=== PATIENT | female | born 1965 | race American Indian/Alaskan Native ===

== ENCOUNTER 2016-10-08 13:00 | Emergency (ER) | payer OTHER ==
[2016-10-08] MEDS ORDERED: TETRACAINE 0.5% OU STA (17:27)
[2016-10-08] MEDS ORDERED: FUL-GLO OP ONE (17:27)
[2016-10-08] MEDS ORDERED: BOOSTRIX IM ONE (17:31)
[2016-10-08] MEDS ORDERED: MOTRIN PO ONE (17:43)
--- NOTE | 2016-10-08 17:49 | Emergency Department Report ---
ED Eye Problem HPI - General Chief complaint: Eye Problems Stated complaint: LEFT EYE INJURY Time Seen by Provider: 10/08/16 17:26 Source: patient Mode of arrival: Ambulatory Limitations: No Limitations - History of Present Illness Initial comments: PT states yesterday she was sewing hair with a hand sewing machine and the needle came back and poked her in the L eye. PT states after the injury, she had mild L eye irritation. PT states last night, her eye began to drain. PT states this morning she had pain that was 8/10 and she tried to see her eye doctor but he was not in. PT states that her TD vaccine is not utd. chief complaint: eye injury -: Sudden, days(s) Onset Description: sudden Location: left eye Place: home If Injury: direct trauma Eye Symptoms: burning, redness, pain, discharge, photophobia Severity: severe Severity scale (0 -10): 8 If Pain, Quality: sharp, burning Associated Symptoms: none Treatments Prior to Arrival: none - Related Data Previous Rx's Medication Instructions Recorded Last Taken Type Acetaminophen/Codeine [Tylenol #3] 1 tab PO Q6H PRN #12 tab 10/08/16 Unknown Rx Erythromycin [Erythromycin Ophth 1 cm OS QID 7 Days 10/08/16 Unknown Rx Oint] Ibuprofen [Motrin] 600 mg PO Q8H PRN #15 tablet 10/08/16 Unknown Rx Allergies Allergy/AdvReac Type Severity Reaction Status Date / Time No Known Allergies Allergy Unverified 10/08/16 13:11 ED Review of Systems ROS: Stated complaint: LEFT EYE INJURY Other details as noted in HPI Constitutional: denies: chills, fever Endocrine: denies: unexplained weight gain, unexplained weight loss Gastrointestinal: denies: vomiting ED Past Medical Hx - Past Medical History Previous Medical History?: No - Surgical History Additional Surgical History: HYSTERECTOMY - Social History Smoking Status: Current Every Day Smoker Substance Use Type: Alcohol, Marijuana - Medications Home Medications: Home Medications Medication Instructions Recorded Confirmed Last Taken Type Acetaminophen/Codeine [Tylenol #3] 1 tab PO Q6H PRN #12 tab 10/08/16 Unknown Rx Erythromycin [Erythromycin Ophth 1 cm OS QID 7 Days 10/08/16 Unknown Rx Oint] Ibuprofen [Motrin] 600 mg PO Q8H PRN #15 tablet 10/08/16 Unknown Rx ED Physical Exam - General Limitations: No Limitations General appearance: alert, in no apparent distress - Head Head exam: Present: atraumatic, normocephalic, normal inspection - Eye Eye exam: Present: PERRL, EOMI, conjunctival injection (L eye ). Absent: periorbital swelling, periorbital tenderness Pupils: Present: other (L eye with corneal abrasion noted over L pupil on wood' s lamp exam, no fb noted. ) - Expanded Eye Exam Expanded Eyelids: Normal Inspection: Left Pupils: Regular, Round: Bilateral, Reactive: Bilateral Anterior chamber: Normal Inspection: Bilateral Visual acuity (R) = 20/: 25 Visual acuity (L) = 20/: 25 With correction: No - ENT ENT exam: Present: normal exam. Absent: normal external ear exam - Neck Neck exam: Present: normal inspection, full ROM - Respiratory Respiratory exam: Absent: respiratory distress, accessory muscle use - Cardiovascular Cardiovascular Exam: Present: regular rate, normal rhythm - Extremities Exam Extremities exam: Present: normal inspection, full ROM - Back Exam Back exam: Present: normal inspection, full ROM - Neurological Exam Neurological exam: Present: alert, oriented X3 - Psychiatric Psychiatric exam: Present: normal affect, normal mood - Skin Skin exam: Present: warm, dry, intact ED Course Vital Signs 10/08/16 10/08/16 10/08/16 13:12 18:11 18:13 Temperature 98.7 F Pulse Rate 74 72 Respiratory 20 20 Rate Blood Pressure 121/65 Blood Pressure 120/64 [Left] O2 Sat by Pulse 100 100 Oximetry - Reevaluation(s) Reevaluation #1: 10/08/16 17:52 PT aware she has corneal abrasion on wood's lamp exam. PT aware of plan of care. PT has no questions at this time. - Pulse Oximetry Interpretation Digit-Finger Initial Pulse Oximetry Readin Actions Taken: none ED Medical Decision Making - Differential Diagnosis fb, corneal abrasion, Critical Care Time: No Critical care attestation.: If time is entered above; I have spent that time in minutes in the direct care of this critically ill patient, excluding procedure time. ED Disposition Clinical Impression: Need for [id number] (Tdap) vaccine Injury of conjunctiva and corneal abrasion of left eye w/o FB Qualifiers: Encounter type: initial encounter Qualified Code(s): S05.02XA - Injury of conjunctiva and corneal abrasion without foreign body, left eye, initial encounter Disposition: DC-01 TO HOME OR SELFCARE Is pt being admited?: No Does the pt Need Aspirin: No Condition: Stable Instructions: Diphtheria/Pertussis/Tetanus Vaccine (DTwP) (Injection), Corneal Abrasion (ED) Additional Instructions: No driving or ETOH after taking Tylenol #3 Follow up with your eye doctor in 2-3 days, return to the ED if worsening Prescriptions: Acetaminophen/Codeine [Tylenol #3] 1 tab PO Q6H PRN #12 tab PRN Reason: Pain , Severe (7-10) Erythromycin [Erythromycin Ophth Oint] 1 cm OS QID 7 Days Ibuprofen [Motrin] 600 mg PO Q8H PRN #15 tablet PRN Reason: Pain Referrals: PRIMARY CARE,MD [Primary Care Provider] - 3-5 Days Forms: Accompanied Note, Work/School Release Form(ED) Time of Disposition: 17:56
[2016-10-08 18:14] VITALS: BP 120/64
== END 2016-10-08 18:14 | disposition home or self-care (01) ==
LOC: ED 13:00
DX: S05.02XA Injury of conjunctiva and corneal abrasion without foreign body, left eye, initial encounter (principal); F17.200 Nicotine dependence, unspecified, uncomplicated; F12.10 Cannabis abuse, uncomplicated; X58.XXXA Exposure to other specified factors, initial encounter; Y93.9 Activity, unspecified; Y92.9 Unspecified place or not applicable; Y99.9 Unspecified external cause status
CPT/HCPCS: 90471; 90715; 99283